=== PATIENT | male | born 1955 | race Caucasian/White ===

== ENCOUNTER 2021-01-06 07:21 | Outpatient (CLI) | payer BC | END 2021-01-06 07:22 | disposition home or self-care (01) | LOC: RAD-FRANK 07:21 | PROVIDERS: ATTEND Nurse Practitioner Family | DX: M25.561 Pain in right knee (principal) ==

== ENCOUNTER 2021-04-07 09:01 | Outpatient (CLI) | payer MEDICARE, OTHER | END 2021-04-07 09:02 | disposition home or self-care (01) | LOC: TBSIIMAG 09:01 | PROVIDERS: ATTEND Orthopaedic Surgery | DX: M17.11 Unilateral primary osteoarthritis, right knee (principal); S83.241A Other tear of medial meniscus, current injury, right knee, initial encounter; M25.461 Effusion, right knee; M76.51 Patellar tendinitis, right knee ==

== ENCOUNTER 2024-08-26 07:35 | Outpatient (CLI) | payer MEDICARE, OTHER | END 2024-08-26 07:36 | disposition home or self-care (01) | LOC: BICULT 07:35 | PROVIDERS: ATTEND Internal Medicine Gastroenterology | DX: E80.4 Gilbert syndrome (principal); B19.20 Unspecified viral hepatitis C without hepatic coma; E83.19 Other disorders of iron metabolism; K74.60 Unspecified cirrhosis of liver | CPT/HCPCS: 76705 ==

== ENCOUNTER 2024-09-09 10:36 | Outpatient (CLI) | payer MEDICARE, OTHER ==
[2024-09-09 12:22] LABS: Anion Gap 12 mmol/L (10-20); BUN (Urea Nitrogen) 12 mg/dL (8.4-25.7); Calc. Creatinine Clearance 0 mL/min (70-130); Calcium 8.7 mg/dL (7.8-10.44); Carbon Dioxide 23 mmol/L (23-31); Chloride 107 mmol/L (98-107); Estimated GFR 97; Glucose 94 mg/dL (80-115); Potassium 3.8 mmol/L (3.5-5.1); Sodium 138 mmol/L (136-145)
[2024-09-09 12:30] LABS: #Basophils 0.05 10x3/uL (0.0-0.2); %Basophils 0.8 % (0.0-1.0); %Eosinophils 3.1 % (0.0-10.0); %Monocytes 12.7 % (0.0-10.0); %Neutrophils 62.8 % (42.0-75.0); Hemoglobin 16.3 g/dL (14.0-18.0); Mean Corpuscular HGB CONC 35.4 g/dL (32.0-36.0); Mean Corpuscular Hemoglobin 31.3 pg (27.0-31.0); Mean Corpuscular Volume 88.3 fL (78.0-98.0); Mean Platelet Volume 9.6 fL (7.4-10.4); Platelet Count 102 10x3/uL (130-400); RBC Distribution Width 13.8 % (11.5-14.5); Red Blood Cell (RBC) Count 5.21 mill/uL (4.70-6.10)
[2024-09-09 12:32] LABS: INR-International Normal Ratio 1.1; Prothrombin Time 14.6 sec (12.0-14.7)
== END 2024-09-09 10:37 | disposition home or self-care (01) ==
LOC: LABBT 10:36
PROVIDERS: ATTEND Orthopaedic Surgery
DX: Z01.818 Encounter for other preprocedural examination (principal); M17.11 Unilateral primary osteoarthritis, right knee
CPT/HCPCS: 80048; 85025; 85610; 87081; 93005; 93010

== ENCOUNTER 2024-09-09 12:59 | Outpatient (CLI) | payer MEDICARE, OTHER | END 2024-09-09 13:00 | disposition home or self-care (01) | LOC: CT 12:59 | PROVIDERS: ATTEND Orthopaedic Surgery | DX: M17.11 Unilateral primary osteoarthritis, right knee (principal); M25.461 Effusion, right knee; I70.90 Unspecified atherosclerosis; Z01.818 Encounter for other preprocedural examination | CPT/HCPCS: 80048; 85025; 85610; 87081; 93005 ==

== ENCOUNTER 2024-09-15 06:11 | Observation (INO) | payer MEDICARE, OTHER ==
[2024-09-15] MEDS ORDERED: Bupivacaine 0.25% HCL 30 ML VIAL ONE (07:14)
[2024-09-15] MEDS ORDERED: fentaNYL 50 mcg/mL 1 mL Vial ONE ×4 (07:14→11:08)
[2024-09-15] MEDS ORDERED: EPINEPHrine 1 MG/ML VIAL ONE (07:14)
[2024-09-15] MEDS ORDERED: Ropivacaine 0.5% HCl/PF (150 MG/30 ML VIAL) ONE (07:14)
[2024-09-15] MEDS ORDERED: Midazolam HCl 2 mg/2 ml Vial ONE (07:14)
[2024-09-15] MEDS ORDERED: Sodium Chloride 0.9% 100 ML ONE (07:17)
[2024-09-15] MEDS ORDERED: Tranexamic Acid 1,000 MG/10 ML VIAL ONE (07:17)
[2024-09-15] MEDS ORDERED: Vancomycin (BATCH) 300 ML ONE (07:18)
[2024-09-15] MEDS ORDERED: CEFAZOLIN 2 GM VIAL ONE (07:50)
[2024-09-15] MEDS ORDERED: PROPOFOL 20 ML ONE (08:26)
[2024-09-15] MEDS ORDERED: Lidocaine 1% PF 5 ML VIAL ONE (08:27)
[2024-09-15] MEDS ORDERED: Ondansetron PF 4 MG/2 ML Vial IVP PRN ×2 (08:30→10:50)
[2024-09-15] MEDS ORDERED: traMADol HCl 50 MG TAB PO PRN (08:30)
[2024-09-15] MEDS ORDERED: Zolpidem Tartrate 5 MG TAB PO PRN ×2 (08:30→10:50)
[2024-09-15] MEDS ORDERED: Promethazine HCl 25 MG/ML VIAL IM PRN ×2 (08:30→10:50)
[2024-09-15] MEDS ORDERED: HYDROcodone/Acetaminophen 10/325 mg Tablet PO PRN (08:30)
[2024-09-15] MEDS ORDERED: Ropivacaine 0.2% 550 ML 550 ML NERVE BLCK SCH (08:30)
[2024-09-15] MEDS ORDERED: PHENYLEPHRINE-NS 100 MCG/ML 10 ML SYRINGE ONE (09:04)
[2024-09-15] MEDS ORDERED: Ondansetron PF 4 MG/2 ML Vial ONE (09:13)
[2024-09-15] MEDS ORDERED: Dexamethasone 4 mg/ml Vial ONE (09:13)
[2024-09-15] MEDS ORDERED: Ketorolac Tromethamine 30 MG (1 mL) VIAL ONE (10:13)
[2024-09-15] MEDS ORDERED: diphenhydrAMINE 25 MG CAP PO PRN (10:50)
[2024-09-15] MEDS ORDERED: Acetaminophen 325 MG TAB PO PRN (10:50)
[2024-09-15] MEDS ORDERED: Ergocalciferol 1.25 MG(50,000 UNITS) CAP PO SCH (10:50)
[2024-09-15] MEDS: Ferrous Gluconate 324 MG TAB PO SCH (11:28)
[2024-09-15] MEDS: Senokot S 8.6-50 MG TAB PO SCH (11:28)
[2024-09-15] MEDS: Ergocalciferol 1.25 MG(50,000 UNITS) CAP PO SCH (11:28)
[2024-09-15] MEDS: Aspirin 81 mg Enteric Coated Tablet PO SCH (11:28)
[2024-09-15] MEDS: Multivitamin W/ Minerals 1 TAB PO SCH (11:28)
[2024-09-15] MEDS: Ketorolac Tromethamine 30 MG (1 mL) VIAL IVP SCH (12:12)
[2024-09-15] MEDS: HYDROcodone/Acetaminophen 10/325 mg Tablet PO PRN (12:12)
[2024-09-15] MEDS: fentaNYL 50 mcg/mL 1 mL Vial SLOW IVP PRN (13:29)
[2024-09-15] MEDS: Sodium Chloride 0.9% 1,000 ML IV SCH (14:00)
[2024-09-15] MEDS: CEFAZOLIN 2 GM in Sodium Chloride 0.9% 100 ML IVPB SCH (17:18)
[2024-09-15] MEDS: Famotidine 20 MG TAB PO SCH (20:07)
[2024-09-15] MEDS: Atorvastatin Calcium 40 MG TAB PO SCH (20:10)
[2024-09-15] MEDS ORDERED: Atorvastatin Calcium 40 MG TAB PO SCH (21:00)
[2024-09-15] MEDS: Bisoprolol Fumarate 5 MG TAB PO SCH (22:02)
[2024-09-16 06:03] VITALS: BP 147/78; TEMP 98
[2024-09-16 06:05] LABS: Hematocrit 40.7 % (42.0-52.0); Hemoglobin 14.3 g/dL (14.0-18.0); Mean Corpuscular HGB CONC 35.1 g/dL (32.0-36.0); Mean Corpuscular Hemoglobin 31.5 pg (27.0-31.0); Mean Corpuscular Volume 89.6 fL (78.0-98.0); Mean Platelet Volume 9.6 fL (7.4-10.4); Platelet Count 97 10x3/uL (130-400); RBC Distribution Width 13.6 % (11.5-14.5); Red Blood Cell (RBC) Count 4.54 mill/uL (4.70-6.10)
[2024-09-16] MEDS: traMADol HCl 50 MG TAB PO PRN (09:25)
== END 2024-09-16 11:53 | disposition home or self-care (01) ==
LOC: SDC 06:11 → SURG A 07:15 → SDC 13:54 → SURG A 13:54 → SDC 09-16 11:53
PROVIDERS: ADMIT Orthopaedic Surgery; ATTEND Orthopaedic Surgery
PROC: 0SRC0JZ Replacement of Right Knee Joint with Synthetic Substitute, Open Approach (ICD-10-PCS; principal; 2024-09-15)
PROC: 3E0T3BZ Introduction of Anesthetic Agent into Peripheral Nerves and Plexi, Percutaneous Approach (ICD-10-PCS; 2024-09-15)
DX: M17.0 Bilateral primary osteoarthritis of knee (principal); I10 Essential (primary) hypertension; E78.5 Hyperlipidemia, unspecified; D64.9 Anemia, unspecified; K21.9 Gastro-esophageal reflux disease without esophagitis; K75.9 Inflammatory liver disease, unspecified; K74.60 Unspecified cirrhosis of liver; Z87.891 Personal history of nicotine dependence; Z90.89 Acquired absence of other organs; Z79.82 Long term (current) use of aspirin; Z79.899 Other long term (current) drug therapy
CPT/HCPCS: 27447; 64448; 73560; 85027; 97110 ×2; 97116 ×2; 97530; A4306; C1713; C1776; C1889; J0171; J0665; J1100; J1885 ×2; J2250; J2405; J2704; J2795 ×2; J3010; J3370; 36415